=== PATIENT | male | born 1960 | race Caucasian/White ===

== ENCOUNTER → 2022-06-15 | Outpatient (CLI) | payer BC ==
--- NOTE | 2022-06-15 16:01 | MR ---
EXAMINATION TYPE: MR pelvis wo/w con DATE OF EXAM: 06/15/2022 COMPARISON: Ultrasound scrotum 04/05/2022. 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 IV Contrast: 9 cc Gadavist FINDINGS: Reproductive: Prostate: Enlarged measuring up to 5.0 cm in transverse dimension. Seminal vesicle's: Unremarkable. Testes: Asymmetrically enlarged right testicle compared to the left. Bladder: Unremarkable. Bowel: Unremarkable as visualized. Peritoneum: A small amount of free fluid in the pelvis. No evidence of adenopathy. Vasculature: Unremarkable. Musculoskeletal: Bone marrow signal is within normal signal intensity. Abdominal wall/soft tissues: Bilateral fat-containing inguinal hernias. There is a fat containing les ion just posterior to the testes slightly off the midline of on the left in the perineum which satura citlaly out on fat sat sequences and measures 3.5 x 1.8 x 2.7 cm. No abnormal postcontrast enhancement. IMPRESSION: Area of concern within the left perineum/posterior to the testes is a fat-containing lesion measuring 3.5 x 1.8 x 2.7 cm and and most consistent with benign lipoma.
== END | disposition home or self-care (01) ==
LOC: RADMRIMAIN 14:48
PROVIDERS: ATTEND Urology
DX: N50.89 Other specified disorders of the male genital organs (principal)
CPT/HCPCS: 72197; A9585